=== PATIENT | female | born 1985 | race Caucasian/White ===

== ENCOUNTER 2017-03-07 20:12 | Emergency (ER) | payer SELFPAY ==
[~2017-03-07 20:12] MED LIST: CALCIUM + VITA1 EAC1 PO; CALCIUM 500 +1 EAC3 PO; CALCIUM CARBO1000 MG PO; COLACE100 MG PO; DEPO PROVERA; DIBUCAINE EXT; DULCOLAX10 MG/SUPP RC; DYAZIDE 37.5-21 EACH PO; ESTRACE1 M1 PO; HYDROCODONE/APA1 CAP; IRON1 TA1 PO; LABETALOL HCL100 MG PO; LEVAQUIN500 MG; MOTRIN800 MG PO; NORCO 5/325 TAB1 TAB PO; PERCOCET 5MG/AP1 TAB PO; PRENATAL1 EACH PO; PROVENTIL HFA6.7 G1 PO; PROVENTIL17 G; PROVENTIL17 GM IH; SURFAK240 M1 PO; SURFAK240 MG PO; TYLENOL W/CODEINE PO; VICODIN 5/500 T1 TAB PO; VITAMIN B650 M1 PO; VITAMIN D1000 UNI1 PO; ZITHROMAX250 MG PO; ZOFRAN4 M1 PO; ZOFRAN4 MG; ZOFRAN4 MG PO
[2017-03-07] MEDS ORDERED: OXYCODONE-ACET1 EAC3 PO (20:41)
[2017-03-07] MEDS ORDERED: VALTREX500 M1 PO (20:41)
== END 2017-03-07 21:24 ==
LOC: EDMED 20:12
DX: B02.9 Zoster without complications (principal)